=== PATIENT | female | born 1990 | race African-American/Black ===

== ENCOUNTER 2022-07-16 06:21 | Emergency (ER) | payer OTHER ==
[~2022-07-16] VITALS: Ht 172.7 cm; Wt 69.0 kg
[2022-07-16] MEDS ORDERED: BENZ200C52 MT (08:36)
[2022-07-16 09:11] VITALS: BP 126/77
== END 2022-07-16 09:13 | disposition home or self-care (01) ==
LOC: ER 06:36
DX: B34.9 Viral infection, unspecified (principal); R05.9 Cough, unspecified; J45.909 Unspecified asthma, uncomplicated
CPT/HCPCS: 71045; 99283

== ENCOUNTER 2024-06-16 08:59 | Emergency (ER) | payer SELFPAY ==
[~2024-06-16] VITALS: Ht 162.6 cm; Wt 65.0 kg
[~2024-06-16 08:59] MED LIST: BENZ200C52 MT
[2024-06-16 09:05] VITALS: O2SAT 100
[2024-06-16 09:08] VITALS: BP 113/75; PULSE 79; RESP 16; TEMP 36.6; O2SAT 99
[2024-06-16 11:50] LABS: CLARITY URINE TURBID (CLEAR); COLOR URINE DARK YELLOW (YELLOW); GLUCOSE URINE NEGATIVE (NEGATIVE); KETONES URINE TRACE (NEGATIVE); LEUKOCYTE ESTERASE URINE NEGATIVE (NEGATIVE); NITRITE URINE NEGATIVE (NEGATIVE); OCCULT BLOOD URINE NEGATIVE (NEGATIVE); PROTEIN URINE 1+ (NEGATIVE); SPECIFIC GRAVITY URINE 1.036 (1.005-1.030)
[2024-06-16 12:19] LABS: BACTERIA URINE 2+; RBC URINE 0-2 /hpf (0-2); SQUAMOUS EPITHELIAL CELL URINE 3+ /lpf (RARE/1+); WBC URINE 0-2 /hpf (0-2); YEAST URINE NONE SEEN
[2024-06-16 13:00] LABS: BASOPHILS % 1.2 % (0.0-2.0); HEMATOCRIT. 41.8 % (36.0-48.0); HEMOGLOBIN. 13.7 g/dL (12.0-16.0); LYMPHOCYTES % 48.1 % (20.0-50.0); MEAN CORPUSCULAR HEMOGLOBIN 29.3 pg (28.0-32.0); MEAN CORPUSCULAR HGB CONC 32.7 g/dL (31.0-37.0); MEAN CORPUSCULAR VOLUME 89.8 fL (81.0-99.0); MEAN PLATELET VOLUME 8.7 fl (7.4-10.4); NEUTROPHILS % 41.7 % (40.0-76.0); PLATELET 349 x1000/uL (130-400); RED BLOOD CELL COUNT 4.65 mill/uL (4.2-5.4); RED CELL DISTRIBUTION WIDTH 13.9 % (11.6-14.6); WHITE BLOOD COUNT 5.7 x1000/uL (4.5-11.0)
[2024-06-16 13:06] LABS: CHLORIDE 106 mEq/L (98-107); POTASSIUM 4.6 mEq/L (3.5-5.1); SODIUM 139 mEq/L (136-145)
[2024-06-16 13:07] LABS: CARBON DIOXIDE 23 mEq/L (21-32)
[2024-06-16 13:08] LABS: CALCIUM 9.4 mg/dL (8.7-10.4)
[2024-06-16 13:12] LABS: CREATININE 0.7 mg/dL (0.6-1.0); GLUCOSE 90 mg/dL (70-105)
[2024-06-16 13:13] LABS: UREA NITROGEN BLOOD 8 mg/dL (9-23)
[2024-06-16 13:15] LABS: TROPONIN I HIGH SENSITIVITY < 4 ng/L (3.0-34)
[2024-06-16 13:17] LABS: HCG SCREEN NEGATIVE
[2024-06-16 13:22] LABS: PROTHROMBIN TIME 10.8 sec (9.6-11.0)
== END 2024-06-16 13:51 | disposition home or self-care (01) ==
LOC: ER 09:42
DX: R07.89 Other chest pain (principal); J45.909 Unspecified asthma, uncomplicated; Z88.1 Allergy status to other antibiotic agents
CPT/HCPCS: 36415; 71045; 80048; 81003; 84484; 84703; 85025; 93005; 99285

== ENCOUNTER 2024-11-29 21:09 | Emergency (ER) | payer SELFPAY ==
[~2024-11-29] VITALS: Ht 167.6 cm; Wt 63.0 kg
[2024-11-29 21:15] VITALS: TEMP 36.6; O2SAT 100
[2024-11-29 22:44] LABS: BASOPHILS % 0.7 % (0.0-2.0); EOSINOPHILS % 2.0 % (0.0-5.0); HEMATOCRIT. 40.0 % (36.0-48.0); HEMOGLOBIN. 13.1 g/dL (12.0-16.0); LYMPHOCYTES % 35.1 % (20.0-50.0); MONOCYTES % 6.5 % (2.0-8.0); NEUTROPHILS % 55.7 % (40.0-76.0); RED BLOOD CELL COUNT 4.54 mill/uL (4.2-5.4); RED CELL DISTRIBUTION WIDTH 14.3 % (11.6-14.6)
[2024-11-29 22:53] LABS: CREATININE 1.1 mg/dL (0.6-1.0); UREA NITROGEN BLOOD 7 mg/dL (9-23)
[2024-11-29 22:55] LABS: ASPARTATE AMINOTRANSFERASE 19 IU/L (<34); BILIRUBIN DIRECT 0.2 mg/dL (<=3.0); BILIRUBIN TOTAL 0.5 mg/dL (0.1-1.0); PROTEIN TOTAL 7.8 g/dL (6.0-8.3)
[2024-11-29 23:12] LABS: MEAN PLATELET VOLUME 10.2 fl (7.4-10.4)
[2024-11-29 23:13] LABS: PLATELET 279 x1000/uL (130-400)
[2024-11-29] MEDS ORDERED: EMTR1TAB11 MT (23:16)
[2024-11-29] MEDS ORDERED: RALT400T MT (23:16)
[2024-11-29 23:33] VITALS: BP 136/79; PULSE 100; RESP 16; O2SAT 100
[2024-11-29 23:33] LABS: HEPATITIS A AB IGM NEGATIVE (Negative); HEPATITIS B CORE AB IGM NEGATIVE (Negative)
[2024-11-29 23:34] LABS: HEPATITIS C AB NON REACTIVE (Neg) (Negative)
[2024-11-29 23:56] LABS: HIV 1/2 AB P24AG Negative (Negative)
[2024-11-30 00:15] LABS: HCG SCREEN NEGATIVE
[2024-11-30 01:41] LABS: HEPATITIS C VIR.AB 0.15 INDEXVAL (0.00-0.80)
[2024-12-01 14:11] LABS: HEPATITIS C VIR.AB 0.15 INDEXVAL (0.00-0.80)
== END 2024-11-29 23:45 | disposition home or self-care (01) ==
LOC: ER 21:09
DX: T14.8XXA Other injury of unspecified body region, initial encounter (principal); W46.0XXA Contact with hypodermic needle, initial encounter; Y99.0 Civilian activity done for income or pay; Y92.89 Other specified places as the place of occurrence of the external cause
CPT/HCPCS: 36415; 80048; 80076; 84703; 85025; 86705; 86709; 87340; 99283

== ENCOUNTER 2025-03-22 16:03 | Emergency (ER) | payer SELFPAY ==
[~2025-03-22] VITALS: Ht 167.6 cm; Wt 60.0 kg
[~2025-03-22 16:03] MED LIST changes: +EMTR1TAB21 MT; +RALT400T MT
[2025-03-22 16:06] VITALS: O2SAT 98
[2025-03-22] MEDS: TETRACAINE 0.5% OPHTH DROPS 4ML BOTHEYE ONE (16:15)
[2025-03-22] MEDS: FLUORESCEIN SODIUM 1MG/STRIP BOTHEYE ONE (16:15)
[2025-03-22] MEDS ORDERED: OCUFLX RIGHTEYE (17:22)
[2025-03-22 17:43] VITALS: BP 128/88; PULSE 82; RESP 18; TEMP 36.9; O2SAT 98
== END 2025-03-22 17:43 | disposition home or self-care (01) ==
LOC: ER 16:03
DX: H10.9 Unspecified conjunctivitis (principal); Z79.624 Long term (current) use of inhibitors of nucleotide synthesis; Z79.899 Other long term (current) drug therapy; Z88.1 Allergy status to other antibiotic agents
CPT/HCPCS: 99283